=== PATIENT | male | born 1970 | race Two or more races ===

== ENCOUNTER 2019-12-18 15:28 | Inpatient (IN) | payer OTHER ==
[~2019-12-18] VITALS: Ht 165.1 cm; Wt 70.6 kg
[2019-12-18 16:30] LABS: BASOPHILS % (AUTO) 0.8 % (0.0-2.0); EOSINOPHILS % (AUTO) 0.9 % (1.0-6.0); HEMOGLOBIN 12.6 g/dL (13.5-17.5); LYMPHOCYTES # (AUTO) 1.5 K/uL (1.0-4.8); LYMPHOCYTES % (AUTO) 25.1 % (22.0-44.0); MEAN CORPUSCULAR HEMOGLOBIN 28.6 pg (26.0-34.0); MEAN CORPUSCULAR HGB CONC 33.1 G/dL (31.0-37.0); MEAN CORPUSCULAR VOLUME 87 fL (80-100); MONOCYTES # (AUTO) 0.8 K/uL (0.1-1.0); MONOCYTES % (AUTO) 13.6 % (2.0-9.0); NEUTROPHILS # (AUTO) 3.5 K/uL (1.8-7.7); NEUTROPHILS % (AUTO) 59.6 % (40.0-70.0); PLATELET COUNT (AUTO) 153 K/uL (150-450); RED CELL DISTRIBUTION WIDTH 14.6 % (11.5-14.5)
[2019-12-18] MEDS ORDERED: SODIUM CHLORIDE 0.9% 1,000 ML IV ONE (16:30)
[2019-12-18 16:39] LABS: ANION GAP 6 mmol/L (8-16); CALCIUM, TOTAL 8.4 mg/dL (8.8-10.5); CARBON DIOXIDE 27 mmol/L (22-29); CHLORIDE 105 mmol/L (98-107); CREATININE 0.95 mg/dL (0.60-1.30); GLOMERULAR FILTR. RATE CALC > 60 mL/min (>60); GLUCOSE,RANDOM 148 mg/dL (70-110); POTASSIUM 3.7 mmol/L (3.5-5.1); SODIUM SERUM 138 mmol/L (136-145); UREA NITROGEN, BLOOD 18 mg/dL (7-18)
[2019-12-18] MEDS ORDERED: 0.9% SODIUM CHLORIDE 10 ML SYRINGE IVP PRN ×2 (16:45→18:15)
[2019-12-18] MEDS ORDERED: ACETAMINOPHEN 325 MG TABLET PO PRN (16:45)
[2019-12-18] MEDS ORDERED: LORazepam 1 MG TABLET PO ONE (16:45)
[2019-12-18] MEDS ORDERED: ONDANSETRON HCL 4 MG/2 ML VIAL IVP PRN ×2 (16:45→18:15)
[2019-12-18] MEDS ORDERED: PANTOPRAZOLE SODIUM 40 MG/VIAL IVP ONE (16:45)
[2019-12-18] MEDS ORDERED: ONDANSETRON HCL 4 MG/2 ML VIAL IVP ONE (16:45)
[2019-12-18 16:47] LABS: ALANINE AMINOTRANSFERASE 50 U/L (12-78); ALBUMIN 4.1 g/dL (3.4-5.0); ALKALINE PHOSPHATASE 85 U/L (46-116); ASPARTATE AMINOTRANSFERASE 68 U/L (15-37); BILIRUBIN,TOTAL 0.7 mg/dL (0.1-1.0); TOTAL PROTEIN, SERUM 7.8 g/dL (6.4-8.2)
[2019-12-18] MEDS ORDERED: ChlordiazePOXIDE HCL 25 MG CAPSULE PO PRN (18:00)
[2019-12-18 18:05] VITALS: BP 113/80
[2019-12-18] MEDS ORDERED: PNEUMOCOCCAL VACCINE POLYVALENT 0.5 ML VIAL [PPSV23] IM ONE (19:00)
[2019-12-18 19:40] VITALS: BP 118/58
[2019-12-18 23:35] VITALS: BP 114/76
[2019-12-19 04:26] VITALS: BP 109/64
[2019-12-19 06:15] LABS: BASOPHILS % (AUTO) 0.8 % (0.0-2.0); EOSINOPHILS % (AUTO) 1.9 % (1.0-6.0); HEMATOCRIT 37.4 % (41-53); HEMOGLOBIN 12.1 g/dL (13.5-17.5); LYMPHOCYTES # (AUTO) 1.3 K/uL (1.0-4.8); MEAN CORPUSCULAR HEMOGLOBIN 28.2 pg (26.0-34.0); MEAN CORPUSCULAR HGB CONC 32.4 G/dL (31.0-37.0); MEAN CORPUSCULAR VOLUME 87 fL (80-100); MONOCYTES # (AUTO) 0.6 K/uL (0.1-1.0); MONOCYTES % (AUTO) 13.5 % (2.0-9.0); NEUTROPHILS # (AUTO) 2.6 K/uL (1.8-7.7); NEUTROPHILS % (AUTO) 55.8 % (40.0-70.0); PLATELET COUNT (AUTO) 145 K/uL (150-450)
[2019-12-19 06:33] LABS: ALANINE AMINOTRANSFERASE 40 U/L (12-78); ALBUMIN 3.4 g/dL (3.4-5.0); ALKALINE PHOSPHATASE 66 U/L (46-116); ANION GAP 5 mmol/L (8-16); ASPARTATE AMINOTRANSFERASE 47 U/L (15-37); BILIRUBIN,TOTAL 0.6 mg/dL (0.1-1.0); CALCIUM, TOTAL 8.5 mg/dL (8.8-10.5); CARBON DIOXIDE 28 mmol/L (22-29); CHLORIDE 103 mmol/L (98-107); CREATININE 0.79 mg/dL (0.60-1.30); GLOMERULAR FILTR. RATE CALC > 60 mL/min (>60); GLUCOSE,RANDOM 112 mg/dL (70-110); POTASSIUM 3.9 mmol/L (3.5-5.1); SODIUM SERUM 136 mmol/L (136-145); TOTAL PROTEIN, SERUM 6.9 g/dL (6.4-8.2); UREA NITROGEN, BLOOD 12 mg/dL (7-18)
[2019-12-19] MEDS ORDERED: ChlordiazePOXIDE HCL 25 MG CAPSULE PO PRN (07:00)
[2019-12-19 07:33] VITALS: BP 125/78
[2019-12-19] MEDS: FOLIC ACID 1 MG TABLET PO SCH ×2 (09:01→09:08)
[2019-12-19] MEDS: THIAMINE HCL 100 MG TABLET PO SCH ×2 (09:01→09:09)
[2019-12-19] MEDS: DOCUSATE SODIUM 100 MG CAPSULE PO SCH ×2 (09:01→09:09)
[2019-12-19] MEDS: MULTIVITAMINS, THERAPEUTIC TABLET PO SCH ×2 (09:01→09:09)
[2019-12-19] MEDS: FAMOTIDINE 20 MG TABLET PO SCH ×2 (09:01→09:09)
[2019-12-19] MEDS: ChlordiazePOXIDE HCL 25 MG CAPSULE PO SCH ×4 (09:02→20:22)
[2019-12-19 15:44] VITALS: BP 116/74
[2019-12-19 20:24] VITALS: BP 128/75
[2019-12-20 06:02] VITALS: BP 113/73
[2019-12-20 07:48] VITALS: BP 123/76
[2019-12-20] MEDS: FAMOTIDINE 20 MG TABLET PO SCH (08:21)
[2019-12-20] MEDS: THIAMINE HCL 100 MG TABLET PO SCH (08:21)
[2019-12-20] MEDS: MULTIVITAMINS, THERAPEUTIC TABLET PO SCH (08:21)
[2019-12-20] MEDS: ChlordiazePOXIDE HCL 25 MG CAPSULE PO SCH ×3 (08:21→20:49)
[2019-12-20] MEDS: FOLIC ACID 1 MG TABLET PO SCH (08:21)
[2019-12-20] MEDS: DOCUSATE SODIUM 100 MG CAPSULE PO SCH ×2 (08:21→20:49)
[2019-12-20] MEDS ORDERED: ACETAMINOPHEN 500 MG TABLET PO ONE (11:45)
[2019-12-20 16:07] VITALS: BP 143/73
[2019-12-20 19:44] VITALS: BP 112/74
[2019-12-21 04:39] VITALS: BP 120/80
[2019-12-21] MEDS ORDERED: ChlordiazePOXIDE HCL 10 MG CAPSULE PO PRN (07:00)
[2019-12-21 07:29] VITALS: BP 128/73
[2019-12-21] MEDS: THIAMINE HCL 100 MG TABLET PO SCH (08:19)
[2019-12-21] MEDS: DOCUSATE SODIUM 100 MG CAPSULE PO SCH ×2 (08:19→21:04)
[2019-12-21] MEDS: FAMOTIDINE 20 MG TABLET PO SCH (08:19)
[2019-12-21] MEDS: MULTIVITAMINS, THERAPEUTIC TABLET PO SCH (08:19)
[2019-12-21] MEDS: ChlordiazePOXIDE HCL 25 MG CAPSULE PO SCH (08:20)
[2019-12-21] MEDS: FOLIC ACID 1 MG TABLET PO SCH (08:20)
[2019-12-21] MEDS: ChlordiazePOXIDE HCL 10 MG CAPSULE PO SCH ×4 (09:00→21:04)
[2019-12-21 15:10] VITALS: BP 117/64
[2019-12-21 19:00] VITALS: BP 134/77
[2019-12-22] MEDS: ACETAMINOPHEN 325 MG TABLET PO PRN ×2 (00:27→08:17)
[2019-12-22 04:00] VITALS: BP 123/73
[2019-12-22] MEDS ORDERED: ChlordiazePOXIDE HCL 10 MG CAPSULE PO PRN (07:00)
[2019-12-22 08:04] VITALS: BP 123/72
[2019-12-22] MEDS: MULTIVITAMINS, THERAPEUTIC TABLET PO SCH (08:17)
[2019-12-22] MEDS: THIAMINE HCL 100 MG TABLET PO SCH (08:17)
[2019-12-22] MEDS: FOLIC ACID 1 MG TABLET PO SCH (08:17)
[2019-12-22] MEDS: FAMOTIDINE 20 MG TABLET PO SCH (08:17)
[2019-12-22 15:27] VITALS: BP 142/80
[2019-12-22 15:28] LABS: AMYLASE 95 U/L (25-115); LIPASE 167 U/L (73-393)
[2019-12-22 15:52] LABS: BASOPHILS % (AUTO) 0.4 % (0.0-2.0); EOSINOPHILS % (AUTO) 0.6 % (1.0-6.0); HEMATOCRIT 48.5 % (41-53); HEMOGLOBIN 15.5 g/dL (13.5-17.5); LYMPHOCYTES # (AUTO) 1.2 K/uL (1.0-4.8); LYMPHOCYTES % (AUTO) 17.5 % (22.0-44.0); MEAN CORPUSCULAR HEMOGLOBIN 28.1 pg (26.0-34.0); MEAN CORPUSCULAR VOLUME 88 fL (80-100); MONOCYTES # (AUTO) 1.2 K/uL (0.1-1.0); MONOCYTES % (AUTO) 16.7 % (2.0-9.0); NEUTROPHILS # (AUTO) 4.6 K/uL (1.8-7.7); NEUTROPHILS % (AUTO) 64.8 % (40.0-70.0); PLATELET COUNT (AUTO) 208 K/uL (150-450); RED BLOOD CELL COUNT(AUTO) 5.52 MIL/uL (4.50-5.90)
[2019-12-22] MEDS: LOPERAMIDE HCL 2 MG CAPSULE PO PRN (17:20)
[2019-12-22 19:30] VITALS: BP 149/83
[2019-12-22] MEDS ORDERED: DEXTROSE 5%-0.45% SODIUM CHL 1,000 ML IV ONE (21:15)
[2019-12-22] MEDS ORDERED: IOVERSOL 320 MG/ML 100 ML VIAL ONE (21:17)
[2019-12-22] MEDS ORDERED: SODIUM CHLORIDE 0.9% 100 ML ONE (21:17)
[2019-12-23 05:10] VITALS: BP 140/68
[2019-12-23] MEDS: ACETAMINOPHEN 325 MG TABLET PO PRN (05:23)
[2019-12-23 08:14] LABS: BASOPHILS % (AUTO) 0.2 % (0.0-2.0); EOSINOPHILS % (AUTO) 0.3 % (1.0-6.0); HEMOGLOBIN 14.5 g/dL (13.5-17.5); LYMPHOCYTES % (AUTO) 13.1 % (22.0-44.0); MEAN CORPUSCULAR HEMOGLOBIN 28.5 pg (26.0-34.0); MEAN CORPUSCULAR HGB CONC 32.9 G/dL (31.0-37.0); MEAN CORPUSCULAR VOLUME 87 fL (80-100); MONOCYTES # (AUTO) 0.9 K/uL (0.1-1.0); MONOCYTES % (AUTO) 11.1 % (2.0-9.0); NEUTROPHILS % (AUTO) 75.3 % (40.0-70.0); PLATELET COUNT (AUTO) 216 K/uL (150-450); RED BLOOD CELL COUNT(AUTO) 5.09 MIL/uL (4.50-5.90); RED CELL DISTRIBUTION WIDTH 14.8 % (11.5-14.5)
[2019-12-23 08:20] VITALS: BP 119/84
[2019-12-23 08:33] LABS: ALANINE AMINOTRANSFERASE 49 U/L (12-78); ALBUMIN 3.8 g/dL (3.4-5.0); ALKALINE PHOSPHATASE 72 U/L (46-116); ANION GAP 11 mmol/L (8-16); ASPARTATE AMINOTRANSFERASE 35 U/L (15-37); BILIRUBIN,TOTAL 0.4 mg/dL (0.1-1.0); CALCIUM, TOTAL 8.2 mg/dL (8.8-10.5); CARBON DIOXIDE 22 mmol/L (22-29); CHLORIDE 101 mmol/L (98-107); CREATININE 0.88 mg/dL (0.60-1.30); GLOMERULAR FILTR. RATE CALC > 60 mL/min (>60); GLUCOSE,RANDOM 107 mg/dL (70-110); POTASSIUM 3.5 mmol/L (3.5-5.1); SODIUM SERUM 134 mmol/L (136-145); TOTAL PROTEIN, SERUM 8.2 g/dL (6.4-8.2); UREA NITROGEN, BLOOD 10 mg/dL (7-18)
[2019-12-23] MEDS: FOLIC ACID 1 MG TABLET PO SCH (08:52)
[2019-12-23] MEDS: FAMOTIDINE 20 MG TABLET PO SCH (08:52)
[2019-12-23] MEDS: MULTIVITAMINS, THERAPEUTIC TABLET PO SCH (08:52)
[2019-12-23] MEDS: THIAMINE HCL 100 MG TABLET PO SCH (08:52)
[2019-12-23 11:42] LABS: APPEARANCE,URINE CLEAR (CLEAR); BILIRUBIN,URINE NEGATIVE (NEGATIVE); GLUCOSE, URINE (UA) NEGATIVE (NEGATIVE); KETONES,URINE NEGATIVE (NEGATIVE); LEUKOCYTE ESTERASE ,URINE NEGATIVE (NEGATIVE); NITRATE,URINE NEGATIVE (NEGATIVE); OCCULT BLOOD,URINE NEGATIVE (NEGATIVE); PH,URINE 6.5 (5.0-8.0); PROTEIN,URINE NEGATIVE (NEGATIVE); UROBILINOGEN,URINE 0.2 mg/dL (<=1.0)
[2019-12-23 11:52] LABS: BACTERIA,URINE None Seen /HPF (None Seen); RBC,URINE None Seen /HPF (0-2); WBC,URINE None Seen /HPF (0-5)
[2019-12-23 13:43] VITALS: BP 119/69
[2019-12-23 16:37] VITALS: BP 123/78
[2019-12-23] MEDS: METOCLOPRAMIDE HCL 5 MG/ML 2 ML VIAL IVP SCH ×2 (16:50→20:21)
[2019-12-23] MEDS: AZITHROMYCIN 500 MG/NS 250 ML IV SCH (16:50)
[2019-12-23] MEDS: CefTRIAXone 1 GM/DEXTROSE 50 ML IV SCH (16:50)
[2019-12-23] MEDS ORDERED: SODIUM CHLORIDE 0.9% 500 ML IV ONE (16:53)
[2019-12-23] MEDS: LOPERAMIDE HCL 2 MG CAPSULE PO PRN (17:02)
[2019-12-23 19:06] LABS: INFLUENZA TYPE A NEGATIVE FOR TYPE A (NEGATIVE)
[2019-12-23 19:07] LABS: INFLUENZA TYPE B NEGATIVE FOR TYPE B (NEGATIVE)
[2019-12-23 20:49] VITALS: BP 122/78
[2019-12-24 04:54] VITALS: BP 125/87
[2019-12-24] MEDS: METOCLOPRAMIDE HCL 5 MG/ML 2 ML VIAL IVP SCH ×3 (06:18→16:38)
[2019-12-24 07:48] VITALS: BP 126/80
[2019-12-24] MEDS: FOLIC ACID 1 MG TABLET PO SCH (08:18)
[2019-12-24] MEDS: MULTIVITAMINS, THERAPEUTIC TABLET PO SCH (08:19)
[2019-12-24] MEDS: THIAMINE HCL 100 MG TABLET PO SCH (08:19)
[2019-12-24] MEDS: FAMOTIDINE 20 MG TABLET PO SCH (08:19)
[2019-12-24 08:20] LABS: ALANINE AMINOTRANSFERASE 57 U/L (12-78); ALBUMIN 3.3 g/dL (3.4-5.0); ALKALINE PHOSPHATASE 64 U/L (46-116); ANION GAP 9 mmol/L (8-16); ASPARTATE AMINOTRANSFERASE 40 U/L (15-37); BILIRUBIN,TOTAL 0.3 mg/dL (0.1-1.0); CALCIUM, TOTAL 7.8 mg/dL (8.8-10.5); CARBON DIOXIDE 26 mmol/L (22-29); CHLORIDE 105 mmol/L (98-107); CREATININE 0.78 mg/dL (0.60-1.30); GLOMERULAR FILTR. RATE CALC > 60 mL/min (>60); GLUCOSE,RANDOM 91 mg/dL (70-110); POTASSIUM 3.7 mmol/L (3.5-5.1); SODIUM SERUM 140 mmol/L (136-145); TOTAL PROTEIN, SERUM 7.3 g/dL (6.4-8.2); UREA NITROGEN, BLOOD 10 mg/dL (7-18)
[2019-12-24] MEDS: ACETAMINOPHEN 325 MG TABLET PO PRN (08:23)
[2019-12-24 15:31] VITALS: BP 109/75
[2019-12-24] MEDS: CefTRIAXone 1 GM/DEXTROSE 50 ML IV SCH (15:33)
[2019-12-24] MEDS: AZITHROMYCIN 500 MG/NS 250 ML IV SCH (16:18)
[2019-12-24 19:27] VITALS: BP 115/68
[2019-12-25 03:41] VITALS: BP 114/71
[2019-12-25 07:53] LABS: BASOPHILS % (AUTO) 0.6 % (0.0-2.0); EOSINOPHILS % (AUTO) 2.1 % (1.0-6.0); HEMATOCRIT 40.2 % (41-53); HEMOGLOBIN 13.1 g/dL (13.5-17.5); LYMPHOCYTES # (AUTO) 1.2 K/uL (1.0-4.8); LYMPHOCYTES % (AUTO) 20.5 % (22.0-44.0); MEAN CORPUSCULAR HEMOGLOBIN 28.1 pg (26.0-34.0); MEAN CORPUSCULAR HGB CONC 32.5 G/dL (31.0-37.0); MEAN CORPUSCULAR VOLUME 86 fL (80-100); MONOCYTES # (AUTO) 0.8 K/uL (0.1-1.0); NEUTROPHILS # (AUTO) 3.7 K/uL (1.8-7.7); NEUTROPHILS % (AUTO) 62.8 % (40.0-70.0); PLATELET COUNT (AUTO) 238 K/uL (150-450); RED BLOOD CELL COUNT(AUTO) 4.66 MIL/uL (4.50-5.90); RED CELL DISTRIBUTION WIDTH 14.6 % (11.5-14.5)
[2019-12-25 08:14] LABS: ALANINE AMINOTRANSFERASE 45 U/L (12-78); ALBUMIN 3.3 g/dL (3.4-5.0); ALKALINE PHOSPHATASE 60 U/L (46-116); ANION GAP 8 mmol/L (8-16); ASPARTATE AMINOTRANSFERASE 30 U/L (15-37); BILIRUBIN,TOTAL 0.3 mg/dL (0.1-1.0); CARBON DIOXIDE 27 mmol/L (22-29); CHLORIDE 107 mmol/L (98-107); CREATININE 0.66 mg/dL (0.60-1.30); GLOMERULAR FILTR. RATE CALC > 60 mL/min (>60); GLUCOSE,RANDOM 87 mg/dL (70-110); SODIUM SERUM 142 mmol/L (136-145); TOTAL PROTEIN, SERUM 7.2 g/dL (6.4-8.2); UREA NITROGEN, BLOOD 9 mg/dL (7-18)
[2019-12-25 08:26] VITALS: BP 125/78
[2019-12-25] MEDS: FAMOTIDINE 20 MG TABLET PO SCH (08:34)
[2019-12-25] MEDS: FOLIC ACID 1 MG TABLET PO SCH (08:34)
[2019-12-25] MEDS: THIAMINE HCL 100 MG TABLET PO SCH (08:34)
[2019-12-25] MEDS: MULTIVITAMINS, THERAPEUTIC TABLET PO SCH (08:34)
[2019-12-25] MEDS: PANTOPRAZOLE SODIUM 40 MG DR TABLET PO SCH (10:46)
[2019-12-25] MEDS: LACTOBAC ACID/BULG/BIFID/THERM TABLET PO SCH ×2 (12:22→20:54)
[2019-12-25] MEDS: CefTRIAXone 1 GM/DEXTROSE 50 ML IV SCH (15:57)
[2019-12-25 17:23] VITALS: BP 113/84
[2019-12-25] MEDS: AZITHROMYCIN 500 MG/NS 250 ML IV SCH (17:27)
[2019-12-25] MEDS: ACETAMINOPHEN 325 MG TABLET PO PRN (20:55)
[2019-12-25 21:18] VITALS: BP 118/75
[2019-12-26] MEDS: BISMUTH SUBSALICYLATE 262 MG CHEWABLE TABLET CHEW PRN (01:57)
[2019-12-26 05:20] VITALS: BP 110/72
[2019-12-26] MEDS: FOLIC ACID 1 MG TABLET PO SCH (08:25)
[2019-12-26] MEDS: THIAMINE HCL 100 MG TABLET PO SCH (08:25)
[2019-12-26] MEDS: FAMOTIDINE 20 MG TABLET PO SCH (08:25)
[2019-12-26] MEDS: MULTIVITAMINS, THERAPEUTIC TABLET PO SCH (08:25)
[2019-12-26] MEDS: PANTOPRAZOLE SODIUM 40 MG DR TABLET PO SCH (08:25)
[2019-12-26] MEDS: LACTOBAC ACID/BULG/BIFID/THERM TABLET PO SCH ×2 (08:25→22:16)
[2019-12-26 09:20] LABS: BASOPHILS % (AUTO) 0.9 % (0.0-2.0); EOSINOPHILS % (AUTO) 2.9 % (1.0-6.0); HEMATOCRIT 38.8 % (41-53); HEMOGLOBIN 13.1 g/dL (13.5-17.5); LYMPHOCYTES # (AUTO) 1.4 K/uL (1.0-4.8); LYMPHOCYTES % (AUTO) 31.9 % (22.0-44.0); MEAN CORPUSCULAR HEMOGLOBIN 29.1 pg (26.0-34.0); MEAN CORPUSCULAR HGB CONC 33.8 G/dL (31.0-37.0); MEAN CORPUSCULAR VOLUME 86 fL (80-100); MONOCYTES # (AUTO) 0.5 K/uL (0.1-1.0); MONOCYTES % (AUTO) 12.1 % (2.0-9.0); NEUTROPHILS # (AUTO) 2.3 K/uL (1.8-7.7); NEUTROPHILS % (AUTO) 52.2 % (40.0-70.0); PLATELET COUNT (AUTO) 265 K/uL (150-450); RED CELL DISTRIBUTION WIDTH 14.8 % (11.5-14.5)
[2019-12-26 09:40] LABS: ALANINE AMINOTRANSFERASE 45 U/L (12-78); ALBUMIN 3.4 g/dL (3.4-5.0); ALKALINE PHOSPHATASE 76 U/L (46-116); ANION GAP 10 mmol/L (8-16); ASPARTATE AMINOTRANSFERASE 25 U/L (15-37); BILIRUBIN,TOTAL 0.2 mg/dL (0.1-1.0); CALCIUM, TOTAL 8.1 mg/dL (8.8-10.5); CARBON DIOXIDE 29 mmol/L (22-29); CHLORIDE 97 mmol/L (98-107); CREATININE 0.91 mg/dL (0.60-1.30); GLOMERULAR FILTR. RATE CALC > 60 mL/min (>60); GLUCOSE,RANDOM 94 mg/dL (70-110); POTASSIUM 3.4 mmol/L (3.5-5.1); SODIUM SERUM 136 mmol/L (136-145); TOTAL PROTEIN, SERUM 7.3 g/dL (6.4-8.2); UREA NITROGEN, BLOOD 10 mg/dL (7-18)
[2019-12-26] MEDS: CefTRIAXone 1 GM/DEXTROSE 50 ML IV SCH (16:28)
[2019-12-26] MEDS: AZITHROMYCIN 500 MG/NS 250 ML IV SCH (17:53)
[2019-12-26 20:44] VITALS: BP 112/65
[2019-12-27 05:02] VITALS: BP 114/68
[2019-12-27 07:41] LABS: BASOPHILS % (AUTO) 1.2 % (0.0-2.0); EOSINOPHILS % (AUTO) 2.5 % (1.0-6.0); HEMOGLOBIN 13.2 g/dL (13.5-17.5); LYMPHOCYTES # (AUTO) 1.6 K/uL (1.0-4.8); LYMPHOCYTES % (AUTO) 34.6 % (22.0-44.0); MEAN CORPUSCULAR HEMOGLOBIN 27.8 pg (26.0-34.0); MEAN CORPUSCULAR HGB CONC 32.1 G/dL (31.0-37.0); MEAN CORPUSCULAR VOLUME 87 fL (80-100); MONOCYTES # (AUTO) 0.6 K/uL (0.1-1.0); MONOCYTES % (AUTO) 12.7 % (2.0-9.0); NEUTROPHILS # (AUTO) 2.3 K/uL (1.8-7.7); PLATELET COUNT (AUTO) 293 K/uL (150-450); RED BLOOD CELL COUNT(AUTO) 4.74 MIL/uL (4.50-5.90); RED CELL DISTRIBUTION WIDTH 14.9 % (11.5-14.5)
[2019-12-27 07:52] LABS: ALANINE AMINOTRANSFERASE 39 U/L (12-78); ALBUMIN 3.5 g/dL (3.4-5.0); ALKALINE PHOSPHATASE 65 U/L (46-116); ANION GAP 8 mmol/L (8-16); ASPARTATE AMINOTRANSFERASE 21 U/L (15-37); BILIRUBIN,TOTAL 0.2 mg/dL (0.1-1.0); CARBON DIOXIDE 28 mmol/L (22-29); CHLORIDE 102 mmol/L (98-107); CREATININE 0.79 mg/dL (0.60-1.30); GLOMERULAR FILTR. RATE CALC > 60 mL/min (>60); GLUCOSE,RANDOM 114 mg/dL (70-110); POTASSIUM 3.9 mmol/L (3.5-5.1); SODIUM SERUM 138 mmol/L (136-145); TOTAL PROTEIN, SERUM 7.7 g/dL (6.4-8.2); UREA NITROGEN, BLOOD 8 mg/dL (7-18)
[2019-12-27 08:32] VITALS: BP 98/70
[2019-12-27] MEDS: PANTOPRAZOLE SODIUM 40 MG DR TABLET PO SCH (08:50)
[2019-12-27] MEDS: MULTIVITAMINS, THERAPEUTIC TABLET PO SCH (08:50)
[2019-12-27] MEDS: FAMOTIDINE 20 MG TABLET PO SCH (08:50)
[2019-12-27] MEDS: FOLIC ACID 1 MG TABLET PO SCH (08:50)
[2019-12-27] MEDS: THIAMINE HCL 100 MG TABLET PO SCH (08:50)
[2019-12-27] MEDS: LACTOBAC ACID/BULG/BIFID/THERM TABLET PO SCH ×2 (08:50→22:12)
[2019-12-27] MEDS: CefTRIAXone 1 GM/DEXTROSE 50 ML IV SCH (15:56)
[2019-12-27 16:08] VITALS: BP 127/81
[2019-12-27] MEDS ORDERED: SODIUM CHLORIDE 0.9% 500 ML IV ONE (17:55)
[2019-12-27] MEDS: AZITHROMYCIN 500 MG/NS 250 ML IV SCH (17:56)
[2019-12-27 22:23] VITALS: BP 123/88
[2019-12-28 05:18] VITALS: BP 107/63
[2019-12-28 07:52] LABS: BASOPHILS % (AUTO) 1.4 % (0.0-2.0); EOSINOPHILS % (AUTO) 1.7 % (1.0-6.0); HEMATOCRIT 41.9 % (41-53); HEMOGLOBIN 13.7 g/dL (13.5-17.5); LYMPHOCYTES # (AUTO) 2.1 K/uL (1.0-4.8); LYMPHOCYTES % (AUTO) 34.2 % (22.0-44.0); MEAN CORPUSCULAR HEMOGLOBIN 28.4 pg (26.0-34.0); MEAN CORPUSCULAR HGB CONC 32.7 G/dL (31.0-37.0); MEAN CORPUSCULAR VOLUME 87 fL (80-100); MONOCYTES # (AUTO) 0.7 K/uL (0.1-1.0); NEUTROPHILS # (AUTO) 3.1 K/uL (1.8-7.7); NEUTROPHILS % (AUTO) 50.7 % (40.0-70.0); PLATELET COUNT (AUTO) 325 K/uL (150-450); RED BLOOD CELL COUNT(AUTO) 4.82 MIL/uL (4.50-5.90)
[2019-12-28 08:07] LABS: ALANINE AMINOTRANSFERASE 40 U/L (12-78); ALBUMIN 3.5 g/dL (3.4-5.0); ALKALINE PHOSPHATASE 73 U/L (46-116); ANION GAP 6 mmol/L (8-16); ASPARTATE AMINOTRANSFERASE 25 U/L (15-37); BILIRUBIN,TOTAL 0.2 mg/dL (0.1-1.0); CALCIUM, TOTAL 8.6 mg/dL (8.8-10.5); CARBON DIOXIDE 29 mmol/L (22-29); CHLORIDE 101 mmol/L (98-107); CREATININE 0.81 mg/dL (0.60-1.30); GLOMERULAR FILTR. RATE CALC > 60 mL/min (>60); GLUCOSE,RANDOM 92 mg/dL (70-110); POTASSIUM 4.3 mmol/L (3.5-5.1); SODIUM SERUM 136 mmol/L (136-145); TOTAL PROTEIN, SERUM 7.8 g/dL (6.4-8.2); UREA NITROGEN, BLOOD 13 mg/dL (7-18)
[2019-12-28] MEDS: PANTOPRAZOLE SODIUM 40 MG DR TABLET PO SCH (08:18)
[2019-12-28] MEDS: LACTOBAC ACID/BULG/BIFID/THERM TABLET PO SCH ×2 (08:18→20:44)
[2019-12-28] MEDS: MULTIVITAMINS, THERAPEUTIC TABLET PO SCH (08:18)
[2019-12-28] MEDS: FOLIC ACID 1 MG TABLET PO SCH (08:18)
[2019-12-28] MEDS: FAMOTIDINE 20 MG TABLET PO SCH (08:18)
[2019-12-28] MEDS: THIAMINE HCL 100 MG TABLET PO SCH (08:18)
[2019-12-28 08:21] VITALS: BP 107/79
[2019-12-28] MEDS: CefTRIAXone 1 GM/DEXTROSE 50 ML IV SCH (16:05)
[2019-12-28] MEDS: AZITHROMYCIN 500 MG/NS 250 ML IV SCH (16:05)
[2019-12-28 18:07] LABS: OVA AND PARASITES EXAM Final report
[2019-12-28 20:53] VITALS: BP 118/75
[2019-12-29 05:50] VITALS: BP 120/75
[2019-12-29 08:03] VITALS: BP 110/70
[2019-12-29 08:25] LABS: BASOPHILS % (AUTO) 1.1 % (0.0-2.0); EOSINOPHILS % (AUTO) 2.3 % (1.0-6.0); HEMATOCRIT 40.9 % (41-53); HEMOGLOBIN 13.4 g/dL (13.5-17.5); LYMPHOCYTES # (AUTO) 2.1 K/uL (1.0-4.8); LYMPHOCYTES % (AUTO) 34.6 % (22.0-44.0); MEAN CORPUSCULAR HEMOGLOBIN 28.2 pg (26.0-34.0); MEAN CORPUSCULAR HGB CONC 32.7 G/dL (31.0-37.0); MEAN CORPUSCULAR VOLUME 86 fL (80-100); MONOCYTES # (AUTO) 0.5 K/uL (0.1-1.0); MONOCYTES % (AUTO) 8.7 % (2.0-9.0); NEUTROPHILS # (AUTO) 3.3 K/uL (1.8-7.7); NEUTROPHILS % (AUTO) 53.3 % (40.0-70.0); PLATELET COUNT (AUTO) 331 K/uL (150-450); RED BLOOD CELL COUNT(AUTO) 4.74 MIL/uL (4.50-5.90); RED CELL DISTRIBUTION WIDTH 15.1 % (11.5-14.5)
[2019-12-29] MEDS: FAMOTIDINE 20 MG TABLET PO SCH (08:36)
[2019-12-29] MEDS: PANTOPRAZOLE SODIUM 40 MG DR TABLET PO SCH (08:36)
[2019-12-29] MEDS: LACTOBAC ACID/BULG/BIFID/THERM TABLET PO SCH ×2 (08:36→20:40)
[2019-12-29] MEDS: FOLIC ACID 1 MG TABLET PO SCH (08:36)
[2019-12-29] MEDS: MULTIVITAMINS, THERAPEUTIC TABLET PO SCH (08:37)
[2019-12-29] MEDS: THIAMINE HCL 100 MG TABLET PO SCH (08:37)
[2019-12-29 09:00] LABS: ALANINE AMINOTRANSFERASE 49 U/L (12-78); ALBUMIN 3.6 g/dL (3.4-5.0); ALKALINE PHOSPHATASE 69 U/L (46-116); ANION GAP 5 mmol/L (8-16); ASPARTATE AMINOTRANSFERASE 28 U/L (15-37); BILIRUBIN,TOTAL 0.2 mg/dL (0.1-1.0); CALCIUM, TOTAL 8.7 mg/dL (8.8-10.5); CARBON DIOXIDE 30 mmol/L (22-29); CHLORIDE 103 mmol/L (98-107); GLOMERULAR FILTR. RATE CALC > 60 mL/min (>60); GLUCOSE,RANDOM 96 mg/dL (70-110); POTASSIUM 4.8 mmol/L (3.5-5.1); SODIUM SERUM 138 mmol/L (136-145); TOTAL PROTEIN, SERUM 7.9 g/dL (6.4-8.2); UREA NITROGEN, BLOOD 14 mg/dL (7-18)
[2019-12-29] MEDS: CefTRIAXone 1 GM/DEXTROSE 50 ML IV SCH (16:50)
[2019-12-29] MEDS: AZITHROMYCIN 500 MG/NS 250 ML IV SCH (18:09)
[2019-12-29 21:02] VITALS: BP 123/85
[2019-12-30 07:36] VITALS: BP 123/82
[2019-12-30 08:42] LABS: ALANINE AMINOTRANSFERASE 52 U/L (12-78); ALBUMIN 3.8 g/dL (3.4-5.0); ALKALINE PHOSPHATASE 76 U/L (46-116); ANION GAP 8 mmol/L (8-16); ASPARTATE AMINOTRANSFERASE 38 U/L (15-37); BILIRUBIN,TOTAL 0.3 mg/dL (0.1-1.0); CALCIUM, TOTAL 9.4 mg/dL (8.8-10.5); CARBON DIOXIDE 25 mmol/L (22-29); CHLORIDE 102 mmol/L (98-107); CREATININE 0.73 mg/dL (0.60-1.30); GLOMERULAR FILTR. RATE CALC > 60 mL/min (>60); GLUCOSE,RANDOM 91 mg/dL (70-110); POTASSIUM 4.9 mmol/L (3.5-5.1); SODIUM SERUM 135 mmol/L (136-145); TOTAL PROTEIN, SERUM 8.3 g/dL (6.4-8.2); UREA NITROGEN, BLOOD 10 mg/dL (7-18)
[2019-12-30] MEDS: FAMOTIDINE 20 MG TABLET PO SCH (08:57)
[2019-12-30] MEDS: MULTIVITAMINS, THERAPEUTIC TABLET PO SCH (08:57)
[2019-12-30] MEDS: THIAMINE HCL 100 MG TABLET PO SCH (08:57)
[2019-12-30] MEDS: FOLIC ACID 1 MG TABLET PO SCH (08:57)
[2019-12-30] MEDS: LACTOBAC ACID/BULG/BIFID/THERM TABLET PO SCH ×2 (08:57→20:36)
[2019-12-30] MEDS: PANTOPRAZOLE SODIUM 40 MG DR TABLET PO SCH (08:57)
[2019-12-30 15:25] VITALS: BP 128/84
[2019-12-30] MEDS: CefTRIAXone 1 GM/DEXTROSE 50 ML IV SCH (15:53)
[2019-12-30] MEDS: AZITHROMYCIN 500 MG/NS 250 ML IV SCH (16:23)
[2019-12-30 20:00] VITALS: BP 128/53
[2019-12-31 05:30] VITALS: BP 115/73
[2019-12-31 08:18] VITALS: BP 127/83
[2019-12-31] MEDS: PANTOPRAZOLE SODIUM 40 MG DR TABLET PO SCH (09:02)
[2019-12-31] MEDS: MULTIVITAMINS, THERAPEUTIC TABLET PO SCH (09:02)
[2019-12-31] MEDS: THIAMINE HCL 100 MG TABLET PO SCH (09:02)
[2019-12-31] MEDS: FAMOTIDINE 20 MG TABLET PO SCH (09:02)
[2019-12-31] MEDS: LACTOBAC ACID/BULG/BIFID/THERM TABLET PO SCH ×2 (09:02→20:01)
[2019-12-31] MEDS: FOLIC ACID 1 MG TABLET PO SCH (09:02)
[2019-12-31] MEDS: LOPERAMIDE HCL 2 MG CAPSULE PO PRN (13:00)
[2020-01-01 05:47] VITALS: BP 122/75
[2020-01-01 07:00] VITALS: BP 130/68
[2020-01-01] MEDS: LACTOBAC ACID/BULG/BIFID/THERM TABLET PO SCH ×2 (11:00→20:08)
[2020-01-01] MEDS: FOLIC ACID 1 MG TABLET PO SCH (11:00)
[2020-01-01] MEDS: PANTOPRAZOLE SODIUM 40 MG DR TABLET PO SCH (11:00)
[2020-01-01] MEDS: BISMUTH SUBSALICYLATE 262 MG CHEWABLE TABLET CHEW PRN (11:01)
[2020-01-01] MEDS: FAMOTIDINE 20 MG TABLET PO SCH (11:01)
[2020-01-01] MEDS: MULTIVITAMINS, THERAPEUTIC TABLET PO SCH (11:01)
[2020-01-01] MEDS: THIAMINE HCL 100 MG TABLET PO SCH (11:01)
[2020-01-01 15:00] VITALS: BP 130/87
[2020-01-01 20:12] VITALS: BP 120/79
[2020-01-02 05:31] VITALS: BP 107/65
[2020-01-02] MEDS: LACTOBAC ACID/BULG/BIFID/THERM TABLET PO SCH ×2 (08:15→21:12)
[2020-01-02] MEDS: FOLIC ACID 1 MG TABLET PO SCH (08:16)
[2020-01-02] MEDS: PANTOPRAZOLE SODIUM 40 MG DR TABLET PO SCH (08:16)
[2020-01-02] MEDS: THIAMINE HCL 100 MG TABLET PO SCH (08:16)
[2020-01-02] MEDS: MULTIVITAMINS, THERAPEUTIC TABLET PO SCH (08:16)
[2020-01-02] MEDS: FAMOTIDINE 20 MG TABLET PO SCH (08:16)
[2020-01-02 08:22] VITALS: BP 112/76
[2020-01-02 16:32] VITALS: BP 119/75
[2020-01-02 21:19] VITALS: BP 103/73
[2020-01-03] MEDS: FOLIC ACID 1 MG TABLET PO SCH (08:03)
[2020-01-03] MEDS: FAMOTIDINE 20 MG TABLET PO SCH (08:03)
[2020-01-03] MEDS: THIAMINE HCL 100 MG TABLET PO SCH (08:03)
[2020-01-03] MEDS: MULTIVITAMINS, THERAPEUTIC TABLET PO SCH (08:03)
[2020-01-03] MEDS: LACTOBAC ACID/BULG/BIFID/THERM TABLET PO SCH ×2 (08:03→20:29)
[2020-01-03] MEDS: PANTOPRAZOLE SODIUM 40 MG DR TABLET PO SCH (08:03)
[2020-01-03 08:18] VITALS: BP 124/66
[2020-01-03 16:17] VITALS: BP 115/73
[2020-01-03 20:31] VITALS: BP 123/76
[2020-01-03] MEDS: ACETAMINOPHEN 325 MG TABLET PO PRN (21:28)
[2020-01-04 04:54] VITALS: BP 103/79
[2020-01-04 08:04] VITALS: BP 117/81
[2020-01-04] MEDS: LACTOBAC ACID/BULG/BIFID/THERM TABLET PO SCH ×2 (08:26→20:18)
[2020-01-04] MEDS: FOLIC ACID 1 MG TABLET PO SCH (08:27)
[2020-01-04] MEDS: THIAMINE HCL 100 MG TABLET PO SCH (08:27)
[2020-01-04] MEDS: PANTOPRAZOLE SODIUM 40 MG DR TABLET PO SCH (08:27)
[2020-01-04] MEDS: FAMOTIDINE 20 MG TABLET PO SCH (08:27)
[2020-01-04] MEDS: MULTIVITAMINS, THERAPEUTIC TABLET PO SCH (08:27)
[2020-01-04] MEDS: ACETAMINOPHEN 325 MG TABLET PO PRN ×2 (08:31→20:19)
[2020-01-04 15:00] VITALS: BP 102/81
[2020-01-04 20:45] VITALS: BP 114/74
[2020-01-05 04:45] VITALS: BP 114/51
[2020-01-05 07:23] VITALS: BP 124/83
[2020-01-05] MEDS: FAMOTIDINE 20 MG TABLET PO SCH (08:57)
[2020-01-05] MEDS: THIAMINE HCL 100 MG TABLET PO SCH (08:57)
[2020-01-05] MEDS: FOLIC ACID 1 MG TABLET PO SCH (08:57)
[2020-01-05] MEDS: LACTOBAC ACID/BULG/BIFID/THERM TABLET PO SCH (08:57)
[2020-01-05] MEDS: MULTIVITAMINS, THERAPEUTIC TABLET PO SCH (08:57)
[2020-01-05] MEDS: ACETAMINOPHEN 325 MG TABLET PO PRN (08:59)
[2020-01-05] MEDS: PANTOPRAZOLE SODIUM 40 MG DR TABLET PO SCH (08:59)
[2020-01-05] MEDS ORDERED: FOLI1 PO (13:11)
[2020-01-05] MEDS ORDERED: ACID1TAB13 PO (13:11)
[2020-01-05] MEDS ORDERED: THIA100T92 PO (13:12)
[2020-01-05] MEDS ORDERED: MULT-723 PO (13:12)
[2020-01-05] MEDS ORDERED: ACET-3207 PO (13:13)
== END 2020-01-05 13:49 | DRG 897 ==
LOC: EMS 15:29 → 6S 16:45
PROVIDERS: ADMIT Internal Medicine; ATTEND Internal Medicine
PROC: 3E0234Z Introduction of Serum, Toxoid and Vaccine into Muscle, Percutaneous Approach (ICD-10-PCS; principal; 2019-12-18)
DX: F10.10 Alcohol abuse, uncomplicated (principal); J98.11 Atelectasis; K74.60 Unspecified cirrhosis of liver; K29.70 Gastritis, unspecified, without bleeding; Y90.9 Presence of alcohol in blood, level not specified; Z23 Encounter for immunization
CPT/HCPCS: 74177; 76700; 84145; 87040; 87045; 87177; 87635; 87804; 89055; 90732; 96372; C9113; G0238; G0480; J0456; J0696; J2405; J2765; J7030; J7040; J7050